=== PATIENT | female | born 1965 | race Caucasian/White ===

== ENCOUNTER 2021-01-07 09:14 | Inpatient (IN) ==
[2021-01-07] MEDS ORDERED: CeFAZolin Syr 2,000MG/20 ML 2,000 MG/20 ML SYRINGE IVPB ONE (09:48)
[2021-01-07] MEDS ORDERED: Ringers Solution, Lactated 1,000 ML IVC SCH (10:00)
[2021-01-07] MEDS ORDERED: *HR* Midazolam HCl 2 MG/2 ML VIAL ONE (10:07)
[2021-01-07] MEDS ORDERED: *HR* FentaNYL (PF) 100 MCG/2 ML VIAL ONE (10:07)
[2021-01-07] MEDS ORDERED: *HR* Remifentanil 2 MG VIAL IVP ONE (10:07)
[2021-01-07] MEDS ORDERED: *HR* Propofol 200 MG/20 ML VIAL IVP ONE ×2 (10:08→14:10)
[2021-01-07] MEDS ORDERED: Lidocaine -MPF 2% 2 ML VIAL ONE ×2 (10:10→13:16)
[2021-01-07] MEDS ORDERED: *HR* Succinylcholine 200 MG/10 ML VIAL IVP ONE (10:12)
[2021-01-07] MEDS ORDERED: Dexamethasone 4 MG/ML VIAL ONE ×2 (10:12→14:36)
[2021-01-07] MEDS ORDERED: Ondansetron 4 MG/2 ML VIAL ONE (10:12)
[2021-01-07] MEDS ORDERED: Lidocaine -MPF 4% 5 ML AMPUL ONE (10:20)
[2021-01-07] MEDS ORDERED: *HR* Heparin 5,000 UNIT/ML VIAL ONE ×2 (10:38→13:07)
[2021-01-07] MEDS ORDERED: *HR* OxyCODONE Immed Rel 5 MG TABLET PO PRN ×2 (10:40→18:10)
[2021-01-07] MEDS ORDERED: *HR* HYDROmorphone PF 0.5 MG/0.5 ML SYRINGE IVP PRN (10:40)
[2021-01-07] MEDS ORDERED: Promethazine 6.25 MG in Water for inj. (sterile) 20 ML IVPB PRN (10:40)
[2021-01-07] MEDS ORDERED: Ondansetron 4 MG/2 ML VIAL IVP PRN (10:40)
[2021-01-07] MEDS ORDERED: Vancomycin 1,000 MG, Sodium Chloride IRRigation 1,000 ML IR ONE (11:10)
[2021-01-07] MEDS ORDERED: *HR* Remifentanil 1 MG VIAL IVP ONE (12:08)
[2021-01-07] MEDS ORDERED: Heparin 1,000 UNITS/500 mL 500 ML ONE (12:55)
[2021-01-07] MEDS ORDERED: Heparin 1,000 UNITS/500 mL 0 ML ONE (12:57)
[2021-01-07] MEDS ORDERED: Vancomycin 1,000 MG VIAL ONE (14:00)
[2021-01-07] MEDS ORDERED: Protamine Sulfate 50 MG/5 ML VIAL IVP ONE (16:09)
[2021-01-07] MEDS ORDERED: 0.9 % Sodium Chloride 1,000 ML IVC SCH (18:10)
[2021-01-07] MEDS ORDERED: *HR* HYDROcodone/Acet 5/325 mg TABLET PO PRN (18:10)
[2021-01-07] MEDS ORDERED: *HR* Labetalol 20 MG/4 ML SYRINGE IVP PRN (18:10)
[2021-01-07] MEDS ORDERED: Acetaminophen 325 MG TABLET PO PRN (18:10)
[2021-01-07] MEDS ORDERED: Naloxone 0.4 MG/ML INJ IVP PRN (18:10)
[2021-01-07] MEDS: Ondansetron 4 MG/2 ML VIAL IVP PRN (20:51)
[2021-01-07] MEDS: CeFAZolin 2 GM/120 ML BAG IVPB SCH (22:39)
[2021-01-08 04:39] LABS: Hematocrit 26.1 % (35.3-44.9); Hemoglobin 8.5 g/dL (11.5-15.4); Mean Corpuscular HGB Conc 32.6 g/dL (31.6-35.5); Mean Corpuscular Hemoglobin 29.5 pg (28.0-33.3); Mean Corpuscular Volume 90.6 fL (83.0-100.0); Red Blood Count 2.88 M/mcL (3.82-4.97); Red Cell Distribution Width 13.3 % (11.5-14.5); White Blood Count 12.9 K/mcL (4.3-11.1)
[2021-01-08 04:40] LABS: Basophils % 0.2 %; Immature Granulocytes % 0.4 % (0-4); Lymphocytes # 1.6 K/mcL (0.6-4.6); Lymphocytes % 12.3 %; Mean Platelet Volume 11.5 fL (9.4-12.4); Monocytes # 0.9 K/mcL (0.0-1.3); Monocytes % 7.1 %; Neutrophils # 10.3 K/mcL (1.6-8.9); Platelet Count 230 K/mcL (140-400)
[2021-01-08 05:01] LABS: BUN/Creatinine Ratio 26 (6-26); Blood Urea Nitrogen 16 mg/dL (6-20); Calcium 8.4 mg/dL (8.6-10.3); Carbon Dioxide 23 mEq/L (23-29); Chloride 108 mEq/L (98-107); Glucose 255 mg/dL (70-105); Osmolality,Calculated 296 (280-300); Potassium 4.4 mEq/L (3.5-5.1); Sodium 138 mEq/L (136-145); eGFR For African Americans > 60 (> 60); eGFR For Non-African Americans > 60 (> 60)
[2021-01-08] MEDS: CeFAZolin 2 GM/120 ML BAG IVPB SCH (05:48)
[2021-01-08] MEDS: *HR* Heparin 5,000 UNIT/ML VIAL SQ SCH ×2 (05:49→17:46)
[2021-01-08] MEDS: Levothyroxine 25 MCG TABLET PO SCH (05:49)
[2021-01-08] MEDS ORDERED: *HR* Heparin 5,000 UNIT/ML VIAL SQ SCH (06:00)
[2021-01-08] MEDS: lisinopriL 5 MG TABLET PO SCH (08:22)
[2021-01-08] MEDS: Isosorbide MONOnitrate (24 HR) 30 MG TAB.ER.24H PO SCH (08:23)
[2021-01-08] MEDS: Aspirin Enteric Coated 81 MG Tablet PO SCH (08:23)
[2021-01-08] MEDS: Metoprolol XL (24 HR) Succ 25 MG TAB.ER.24H PO SCH (08:23)
[2021-01-08] MEDS: Cholecalciferol (D-3) 1,000 UNIT (25MCG) TABLET PO SCH (08:23)
[2021-01-08] MEDS ORDERED: *HR* Metoprolol 5 MG/5 ML VIAL IVP SCH (09:00)
[2021-01-08] MEDS: Ondansetron 4 MG/2 ML VIAL IVP PRN (09:18)
[2021-01-08] MEDS ORDERED: 0.9 % Sodium Chloride 500 ML IVC ONE (10:01)
[2021-01-08] MEDS ORDERED: 0.9 % Sodium Chloride 500 ML ONE (10:02)
[2021-01-08] MEDS ORDERED: *HR* Promethazine 25 MG/ML VIAL IM PRN (14:19)
[2021-01-09] MEDS: *HR* Heparin 5,000 UNIT/ML VIAL SQ SCH ×2 (05:05→18:37)
[2021-01-09] MEDS: Levothyroxine 25 MCG TABLET PO SCH (05:37)
[2021-01-09] MEDS: Cholecalciferol (D-3) 1,000 UNIT (25MCG) TABLET PO SCH (08:57)
[2021-01-09] MEDS: Aspirin Enteric Coated 81 MG Tablet PO SCH (08:58)
[2021-01-09] MEDS: Isosorbide MONOnitrate (24 HR) 30 MG TAB.ER.24H PO SCH (10:08)
[2021-01-09] MEDS: lisinopriL 5 MG TABLET PO SCH (10:08)
[2021-01-09] MEDS: Metoprolol XL (24 HR) Succ 25 MG TAB.ER.24H PO SCH (10:08)
[2021-01-09 10:42] LABS: Basophils # 0.1 K/mcL (0.0-0.2); Basophils % 0.5 %; Eosinophils # 0.1 K/mcL (0.0-0.6); Eosinophils % 1.2 %; Hematocrit 22.5 % (35.3-44.9); Hemoglobin 7.3 g/dL (11.5-15.4); Immature Granulocytes % 0.3 % (0-4); Lymphocytes % 21.4 %; Mean Corpuscular HGB Conc 32.4 g/dL (31.6-35.5); Mean Corpuscular Hemoglobin 29.8 pg (28.0-33.3); Mean Corpuscular Volume 91.8 fL (83.0-100.0); Mean Platelet Volume 11.5 fL (9.4-12.4); Monocytes # 0.9 K/mcL (0.0-1.3); Monocytes % 9.6 %; Neutrophils # 6.3 K/mcL (1.6-8.9); Platelet Count 200 K/mcL (140-400); Red Blood Count 2.45 M/mcL (3.82-4.97); Red Cell Distribution Width 13.2 % (11.5-14.5); White Blood Count 9.3 K/mcL (4.3-11.1)
[2021-01-09 11:01] LABS: BUN/Creatinine Ratio 20 (6-26); Blood Urea Nitrogen 9 mg/dL (6-20); Calcium 8.2 mg/dL (8.6-10.3); Carbon Dioxide 25 mEq/L (23-29); Chloride 107 mEq/L (98-107); Glucose 227 mg/dL (70-105); Osmolality,Calculated 290 (280-300); Potassium 3.9 mEq/L (3.5-5.1); Sodium 137 mEq/L (136-145); eGFR For African Americans > 60 (> 60); eGFR For Non-African Americans > 60 (> 60)
[2021-01-09 16:50] VITALS: BP 145/79
== END 2021-01-09 18:35 | disposition home or self-care (01) | DRG 169 ==
LOC: SAMDAY 09:14 → 2NNU 18:51
PROVIDERS: ADMIT Surgery; ATTEND Surgery